=== PATIENT | female | born 1940 | race Caucasian/White ===

== ENCOUNTER → 2019-06-06 | Outpatient (CLI) | payer MEDICARE | END | disposition home or self-care (01) | LOC: SHCH 10:01 | PROVIDERS: ATTEND Internal Medicine Cardiovascular Disease | DX: I08.2 Rheumatic disorders of both aortic and tricuspid valves (principal); I42.9 Cardiomyopathy, unspecified; J90 Pleural effusion, not elsewhere classified | CPT/HCPCS: 93306 ==

== ENCOUNTER 2019-08-14 07:17 | Observation (INO) | payer MEDICARE ==
[2019-08-12 10:08] LABS: BASOPHILS % (AUTO) 0.2 % (0.0-5.0); HEMATOCRIT 33.8 % (36-48); LYMPHOCYTES % (AUTO) 21.6 % (21.0-51.0); MEAN CORPUSCULAR HEMOGLOBIN 30.7 pg (27.0-33.0); MONOCYTES % (AUTO) 16.2 % (3.0-13.0); NEUTROPHILS % (AUTO) 57.8 % (40.0-77.0); PLATELET COUNT (AUTO) 181 K/uL (130-400); RED BLOOD CELL COUNT(AUTO) 3.52 MIL/uL (4.00-5.50); RED CELL DISTRIBUTION WIDTH 13.4 % (11.0-15.5)
[2019-08-12 10:15] LABS: CREATININE 1.2 mg/dL (0.5-1.5); POTASSIUM 5.1 mmol/L (3.5-5.1)
[2019-08-12 10:20] LABS: INR 1.02 (0.85-1.15); PARTIAL THROMBOPLASTIN TIME 26.6 SEC (26.3-35.5); PROTHROMBIN TIME 10.7 SEC (9.6-11.6)
[2019-08-12 11:05] VITALS: BP 91/51
[2019-08-14] VITALS (13 sets, daily range): BP systolic 91–139; BP diastolic 47–66
[~2019-08-14] VITALS: Ht 157.5 cm; Wt 60.0 kg
[~2019-08-14 07:17] MED LIST: ACET325T51 PO; AEC81 PO; ASCO500C18 PO; CARV12.511 PO; CEFAZOLIN SODIUM 1 GM VIAL IVP SCH; FURO20TA4 PO; GABA-531 PO; LORA10TA7 PO; MULT-1065 PO; POTA10CA44 PO; SIMV-43 PO; SODIUM CHLORIDE 0.9% 500ML 500 ML IV SCH; SPIR25TA PO; VITA1CAP17 PO
[2019-08-14] MEDS ORDERED: SODIUM CHLORIDE 0.9% 1000ML 1,000 ML IV ONE (07:37)
--- NOTE | 2019-08-14 07:40 | NUR ---
PRE OP PT ARRIVED AMBULATORY IN NO DISTRESS FOR INSERTION OF CARDIOVERTER DEFIB. PT ORIENTED TO ROOM, CALL LIGHT WITH IN REACH, BED IN LOWEST POSITION, PT INSTRUCTED TO CALL FOR ASSISTANCE. PT VOICED UNDERSTANDING
[2019-08-14] MEDS ORDERED: VITA1CAP17 PO (08:50)
[2019-08-14] MEDS ORDERED: ACETAMINOPHEN 325 MG TAB ONE (13:09)
[2019-08-14] MEDS ORDERED: ACETAMINOPHEN 325 MG TAB PO SCH (13:30)
--- NOTE | 2019-08-14 15:44 | NUR ---
RECEIVED REPORT FROM LISSY WYNN, PT STABLE NO DISTRESS, NO CONCERNS AT THIS TIME
[2019-08-14] MEDS ORDERED: LIDOCAINE HCL 1% MDV 50ML VIAL ONE (17:06)
[2019-08-14] MEDS ORDERED: MIDAZOLAM HCL 1 MG/ML 2ML VIAL ONE ×2 (17:06→17:43)
[2019-08-14] MEDS ORDERED: MEPERIDINE-PF 25 MG/ML SYG ONE ×2 (17:06→17:43)
[2019-08-14] MEDS ORDERED: BUPIVACAINE/PF 0.25% 30ML VIAL IJ ONE (17:06)
[2019-08-14] MEDS ORDERED: CEFAZOLIN SODIUM 1 GM VIAL ONE (17:06)
[2019-08-14] MEDS ORDERED: ONDANSETRON HCL 4 MG/2 ML VIAL ONE (17:12)
[2019-08-14] MEDS ORDERED: LORATADINE 10 MG TABLET PO PRN (18:30)
[2019-08-14] MEDS ORDERED: SIMVASTATIN 20 MG TABLET PO SCH (21:00)
[2019-08-14] MEDS: GABAPENTIN 300 MG CAPSULE PO SCH (21:01)
[2019-08-15 03:00] VITALS: BP 110/60
[2019-08-15 07:30] VITALS: BP 115/70
[2019-08-15] MEDS: GABAPENTIN 300 MG CAPSULE PO SCH (08:38)
[2019-08-15 08:39] VITALS: BP 115/70
[2019-08-15] MEDS ORDERED: FUROSEMIDE 20 MG TABLET PO SCH (09:00)
[2019-08-15] MEDS ORDERED: VITAMIN B COMPLEX 1 CAPSULE PO SCH (09:00)
[2019-08-15] MEDS ORDERED: FE FUMARATE/FA/MV, MIN COMB#15 1 TAB PO SCH (09:00)
[2019-08-15] MEDS ORDERED: VITAMIN C PO SCH (09:00)
[2019-08-15] MEDS ORDERED: ACETAMINOPHEN 325 MG TAB PO SCH (09:00)
[2019-08-15] MEDS ORDERED: VIT C NO 3 PO SCH (09:00)
[2019-08-15] MEDS ORDERED: ASCORBIC ACID 500 MG TAB PO SCH (09:00)
[2019-08-15] MEDS ORDERED: VITAMIN B COMPLEX PO SCH (09:00)
[2019-08-15] MEDS ORDERED: [UNRECOGNIZED DRUG - OTHER] PO SCH (09:00)
[2019-08-15] MEDS ORDERED: POTASSIUM CHLORIDE 10 MEQ/TAB.SA PO SCH (09:00)
[2019-08-15] MEDS ORDERED: ASPIRIN 81 MG EC TAB PO SCH (09:00)
[2019-08-15] MEDS ORDERED: SPIRONOLACTONE 25 MG TAB PO SCH (09:00)
[2019-08-15] MEDS ORDERED: CARVEDILOL 12.5 MG TABLET PO SCH (09:00)
== END 2019-08-15 11:23 | disposition home or self-care (01) ==
LOC: DAH 07:17 → 2AH 18:28
PROVIDERS: ADMIT Internal Medicine; ATTEND Internal Medicine
DX: I42.8 Other cardiomyopathies (principal); I25.5 Ischemic cardiomyopathy; I11.0 Hypertensive heart disease with heart failure; I50.42 Chronic combined systolic (congestive) and diastolic (congestive) heart failure; E78.5 Hyperlipidemia, unspecified; G62.9 Polyneuropathy, unspecified
CPT/HCPCS: 33249; 36415 ×2; 71045; 80048; 84132; 85025; 85610; 85730; 93005; A4215; A4216; A4221; A4222; A4223 ×3; A4606; A4663; C1722; C1895; G0378 ×7; J0690; J2175 ×2; J2250 ×2; J2405; J3490 ×2; J7030; 99156; 99157

== ENCOUNTER → 2020-09-06 | Outpatient (CLI) | payer MEDICARE ==
[~2020-09-06] MED LIST changes: -CEFAZOLIN SODIUM 1 GM VIAL IVP SCH; -SODIUM CHLORIDE 0.9% 500ML 500 ML IV SCH
[2020-09-06 16:48] LABS: BASOPHILS % (AUTO) 0.4 % (0.0-5.0); HEMATOCRIT 32.4 % (36-48); LYMPHOCYTES % (AUTO) 20.6 % (21.0-51.0); MEAN CORPUSCULAR HEMOGLOBIN 29.9 pg (27.0-33.0); MEAN CORPUSCULAR HGB CONC 30.9 g/dL (32.0-36.0); MEAN CORPUSCULAR VOLUME 96.7 fL (79-99); NEUTROPHILS % (AUTO) 60.7 % (40.0-77.0); PLATELET COUNT (AUTO) 256 K/uL (130-400); RED BLOOD CELL COUNT(AUTO) 3.35 MIL/uL (4.00-5.50); RED CELL DISTRIBUTION WIDTH 14.6 % (11.0-15.5); WHITE BLOOD COUNT (AUTO) 6.7 K/uL (4.8-10.8)
[2020-09-06 17:06] LABS: ALBUMIN 4.3 g/dL (3.5-5.0); BILIRUBIN,TOTAL 0.2 mg/dL (0.2-1.0); CREATININE 1.4 mg/dL (0.5-1.5); MAGNESIUM 2.4 mg/dL (1.80-2.40)
[2020-09-06 17:11] LABS: POTASSIUM 6.5 mmol/L (3.5-5.1)
== END | disposition home or self-care (01) ==
LOC: LAB 15:35
PROVIDERS: ATTEND Internal Medicine Cardiovascular Disease
DX: I47.1 Supraventricular tachycardia (principal); I47.2 Ventricular tachycardia
CPT/HCPCS: 36415; 80053; 83735; 85025

== ENCOUNTER → 2022-05-30 | Outpatient (CLI) | payer MEDICARE, OTHER ==
[~2022-05-30] MED LIST changes: -POTA10CA44 PO; +POTA10CA45 PO
[2022-05-30 12:51] LABS: MAGNESIUM 2.4 mg/dL (1.80-2.40); POTASSIUM 4.1 mmol/L (3.5-5.1)
== END | disposition home or self-care (01) ==
LOC: LAB 10:07
PROVIDERS: ATTEND Internal Medicine Cardiovascular Disease
DX: I47.20 Ventricular tachycardia, unspecified (principal)
CPT/HCPCS: 36415; 80048; 83735

== ENCOUNTER → 2024-09-23 | Outpatient (CLI) | payer OTHER ==
[~2024-09-23] MED LIST changes: +ACET-3859 PO; -ACET325T51 PO; -POTA10CA45 PO; +POTA10CA95 PO
--- NOTE | 2024-09-23 14:58 | HMCIMG ---
CHEST 2VWS HISTORY: Presence of automatic implantable cardioverter defibrillator COMPARISON: None FINDINGS: Frontal and lateral projections of the chest were obtained. There are prominent interstitial markings with possible superimposed infiltrates. The heart is not enlarged. No evidence of aortic calcification is seen. Pacemaker is seen entering from the left. No pneumothorax is seen. Degenerative changes are seen of the thoracolumbar spine. IMPRESSION: 1. There are prominent interstitial markings. 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
== END | disposition home or self-care (01) ==
LOC: RAH 12:03
PROVIDERS: ATTEND Internal Medicine Cardiovascular Disease
DX: J84.10 Pulmonary fibrosis, unspecified (principal); M47.815 Spondylosis without myelopathy or radiculopathy, thoracolumbar region; I25.5 Ischemic cardiomyopathy; I42.0 Dilated cardiomyopathy; Z95.810 Presence of automatic (implantable) cardiac defibrillator
CPT/HCPCS: 71046